=== PATIENT | female | born 1995 | race Caucasian/White ===

== ENCOUNTER 2020-08-12 01:10 | Emergency (ER) | payer SELFPAY ==
[~2020-08-12] VITALS: Ht 170.2 cm; Wt 85.7 kg
[~2020-08-12 01:10] MED LIST: IBUP-44
[2020-08-12 01:33] VITALS: BP 114/61
--- NOTE | 2020-08-12 01:44 | NUR ---
PT SAYS SHE GOT HOME AROUND 12 AM AND STARTED HAVING SEVERE CHEST PAIN, SHARP PAIN DIRECTLY OVER HEART. WHEN TRYING TO TAKE DEEP BREATHS THE PAIN IS WORSE AND SHE FEELS LIKE SHE CAN'T GET A GOOD BREATH. PAIN IS NONRADIATING. DENIES N/V/D, AFEBRILE. BED IN LOWEST POSITION AND SIDERAIL UP X 1. NKA NO HX
--- NOTE | 2020-08-12 01:44 | NUR ---
PT PLACED ON BEDSIDE MONITOR
--- NOTE | 2020-08-12 02:30 | NUR ---
X-RAY AT BEDSIDE
[2020-08-12] MEDS: IBUPROFEN 600 MG TAB PO ONE (02:31)
[2020-08-12 02:35] LABS: BASOPHILS % (AUTO) 0.2 % (0.0-2.0); EOSINOPHILS # (AUTO) 0.1 K/uL (0-0.4); EOSINOPHILS % (AUTO) 0.8 % (0.0-4.0); HEMATOCRIT 37.8 % (36-48); HEMOGLOBIN 12.7 g/dL (12.0-16.0); LYMPHOCYTES # (AUTO) 3.1 K/uL (2.5-16.5); LYMPHOCYTES % (AUTO) 32.5 % (20.5-51.1); MEAN CORPUSCULAR HEMOGLOBIN 29 pg (27-31); MEAN CORPUSCULAR HGB CONC 34 g/dL (33-37); MEAN CORPUSCULAR VOLUME 84.7 fL (80-94); MONOCYTES # (AUTO) 0.5 K/uL (0.8-1.0); MONOCYTES % (AUTO) 4.8 % (1.7-9.3); NEUTROPHILS % (AUTO) 61.7 % (42.2-75.2); PLATELET COUNT (AUTO) 236 K/uL (140-450); RED BLOOD CELL COUNT(AUTO) 4.46 MIL/uL (4.20-5.40); RED CELL DISTRIBUTION WIDTH 13.3 % (11.6-13.7); WHITE BLOOD COUNT (AUTO) 9.7 K/uL (4.8-10.8)
[2020-08-12 02:56] LABS: ALBUMIN 3.6 g/dL (3.4-5.0); ANION GAP 14.3 (8-16); CARBON DIOXIDE 26.3 mmol/L (21-32); CREATININE 0.9 mg/dL (0.6-1.3); POTASSIUM 3.6 mmol/L (3.5-5.1); TOTAL BILIRUBIN 0.3 mg/dL (0.0-1.0)
[2020-08-12 03:31] LABS: CKMB RELATIVE INDEX 1.4 (0.0-2.5); CREATINE KINASE MB 3.7 ng/mL (0-3.6)
--- NOTE | 2020-08-12 04:01 | NUR ---
PT SLEEPING RESPIRATIONS REGULAR EVEN AND UNLABORED. NO DISTRESS NOTED. PT REMAINS ON BEDSIDE MONITOR
--- NOTE | 2020-08-12 05:00 | NUR ---
PT SLEEPING NO DISTRESS NOTED REMAINS ON BEDSIDE MONITOR
--- NOTE | 2020-08-12 05:04 | NUR ---
LAB COLLECTED AND WALKED OVER TO LAB.
--- NOTE | 2020-08-12 05:44 | NUR ---
SECOND TROPONIN BACK AND NEGATIVE, MD AWARE
--- NOTE | 2020-08-12 05:44 | NUR ---
SECOND EKG DONE AND SHOWN TO MD COATES.
[2020-08-12 05:46] VITALS: BP 95/54
--- NOTE | 2020-08-12 05:50 | NUR ---
Patient discharged with v/s stable. Written and verbal after care instructions given and explained. Patient verbalized understanding. Ambulatory with steady gait. All questions addressed prior to discharge. Advised to follow up with PMD.
== END 2020-08-12 05:50 | disposition home or self-care (01) ==
LOC: MED 01:10
DX: R07.9 Chest pain, unspecified (principal); Z79.899 Other long term (current) drug therapy
CPT/HCPCS: 36415; 71045; 80053; 82550; 82553; 83880; 84484; 84702; 85025; 93005; 93971; 99285; Q0092

== ENCOUNTER 2021-10-09 21:35 | Emergency (ER) | payer SELFPAY ==
[~2021-10-09] VITALS: Ht 170.2 cm; Wt 83.9 kg
[2021-10-09 21:44] VITALS: BP 115/71
--- NOTE | 2021-10-09 21:47 | NUR ---
to lobby a/w bed ambulatory
--- NOTE | 2021-10-09 21:53 | NUR ---
seen and examined by [email or web address]
[2021-10-09] MEDS ORDERED: SULOS OP (21:56)
--- NOTE | 2021-10-09 21:59 | NUR ---
PATIENT EXAMINED AND CLEARED DISCHARGE BY DR. CARR. DISCHARGE INSTRUCTIONS AND MEDICAITON ADMINISTRATION PROVIDED BY DR. CARR. RX OF SULFACETAMIDE. PT AMBULATORY TO PERSONAL VEHICLE IN STABEL CONDITION.
== END 2021-10-09 21:59 | disposition home or self-care (01) ==
LOC: MED 21:35
DX: H10.9 Unspecified conjunctivitis (principal); Z79.899 Other long term (current) drug therapy
CPT/HCPCS: 99283

== ENCOUNTER 2024-03-15 01:05 | Emergency (ER) | payer MEDICAID ==
[~2024-03-15] VITALS: Ht 170.2 cm; Wt 90.7 kg
[~2024-03-15 01:05] MED LIST changes: +SULOS OP
[2024-03-15 01:30] VITALS: BP 134/75; PULSE 82; RESP 18; TEMP 97.4; O2SAT 98
[2024-03-15] MEDS: ALUMINUM HYD/MAG/SIMETHICONE 30 ML UDC PO ONE (03:29)
[2024-03-15] MEDS ORDERED: SUCR1TAB56 PO (03:37)
[2024-03-15] MEDS ORDERED: FAMO-90 PO (03:37)
[2024-03-15 04:20] VITALS: BP 107/71; PULSE 75; RESP 17; O2SAT 97
== END 2024-03-15 04:20 | disposition home or self-care (01) ==
LOC: MED 01:05
DX: K29.70 Gastritis, unspecified, without bleeding (principal); Z79.899 Other long term (current) drug therapy
CPT/HCPCS: 93005; 99283